=== PATIENT | female | born 1965 | race Caucasian/White ===

== ENCOUNTER 2017-10-30 18:09 | Inpatient (IN) | payer OTHER ==
[~2017-10-30] VITALS: Ht 172.7 cm; Wt 84.1 kg
--- NOTE | ~2017-10-30 | HC ---
[facility] [place] [address] CONSULTATION Name: KARY GUERRIER Room #: 427-P ADM IN .R.#: [id number] Admission: 10/30/17 Attend Phys: Greg Rossi MD Discharge: Date of : 63 Report #: [id number] THIS REPORT FOR: //name// CC: [facility] physician/PCP Greg Rossi DATE OF SERVICE: 10/31/2017 CHIEF COMPLAINT: Left ischial pressure ulceration. HISTORY OF PRESENT ILLNESS: This is a 51-year-old female patient with a history of paraplegia. She apparently had some sort of a cervical cord lesion that has caused her paraplegia. All of the details are not entirely clear. The patient has significant contractures and spasm of her lower extremities. She has developed a pressure ulceration of the right ischium and she states is painful and I have been asked to see her with regard to wound care. PAST MEDICAL HISTORY: History of lumbar spine surgery and cervical spine injury and scoliosis. SOCIAL HISTORY: Negative for alcohol or tobacco use. FAMILY HISTORY: Noncontributory. REVIEW OF SYSTEMS: CONSTITUTIONAL: The patient does complain of some fever and chills. NEUROLOGICAL: The patient does have paraplegia and spasticity of lower extremities. ENT: The patient denies earache, nasal drainage or sore throat. CARDIOVASCULAR: The patient denies chest pain, palpitations or diaphoresis. PULMONARY: The patient denies cough or shortness of breath. GASTROINTESTINAL: No nausea, vomiting, diarrhea or abdominal pain. GENITOURINARY: Present for has a Hays catheter in place. ORTHOPEDIC: The patient is aware of the ulceration on the left ischial region. Other systems in a 14-point review of systems are negative. MEDICATIONS: As per MAR include ceftriaxone, vancomycin, hydrocodone and enoxaparin. ALLERGIES: None. PHYSICAL EXAMINATION: VITAL SIGNS: At this time include pulse 102, respirations 16, blood pressure 119/65 and temperature 99.3. GENERAL: This is a chronically ill-appearing female [place] [address] CONSULTATION Name: KARY GUERRIER Room #: [address] [place] [address] IN M.R.#: [id number] Admission: 10/30/17 Attend Phys: Greg Rossi MD Discharge: Date of : 63 Report #: [id number] minimal distress. HEENT: Examination of the head normocephalic. LUNGS: Clear. NECK: Supple. LUNGS: Clear. HEART: Regular. ABDOMEN: Soft. Bowel sounds present. EXTREMITIES: Examination of the lower extremities demonstrates contractures of the hips and knees. She has a large circular ulceration to the left ischial region. This is unstageable and is covered with fibrin. There is significant surrounding erythema and tenderness as well as the odor. NEUROLOGICAL: The patient is paraplegic with spasticity of the lower extremities. LABORATORY DATA: Includes sodium 139, potassium 3.1, chloride 106, CO2 23, BUN 12, creatinine 0.5 and glucose 96. White blood cell count 18.1 down from 23.0, hemoglobin of 10.3 and hematocrit 29.2. Prealbumin is very low at 4.8. CLINICAL IMPRESSION: 1. An unstageable pressure ulcer over the left ischial tuberosity with wound infection. 2. Paraplegia with lower extremity contractures and spasticity. 3. Severe protein-calorie malnutrition. 4. Urinary tract infection. RECOMMENDATIONS: At this point in time, we will recommend operative debridement and I have consulted Dr. Figueredo once the wound base is glove cleaner. We will consider options for local wound care, although this may be amenable to a wound VAC. She will need low air loss mattress, q. 2 hour turning and positioning. She may benefit from seeing Physical Therapy and possibly Psychiatry with regard to the significant contractures of her lower extremities. She will need aggressive nutritional support to support normal wound healing. All questions have been answered. I appreciate being asked to see her in consultation. <ELECTRONICALLY SIGNED> By: Samson Mejia MD 11/02/17 1712 2316 [id number] Samson Mejia MD /nt
--- NOTE | ~2017-10-30 | HC ---
[facility] [place] [address] CONSULTATION Name: KARY GUERRIER Room #: 427-P ADM IN M.R.#: [id number] Admission: 10/30/17 Attend Phys: Greg Rossi MD Discharge: Date of : 63 Report #: [id number] THIS REPORT FOR: //name// CC: [facility] physician/PCP Greg Rossi DATE OF SERVICE: 11/06/2017 HISTORY OF PRESENT ILLNESS: The patient is a 51-year-old white female with a prior cervical spinal cord injury from 2012, premorbidly wheelchair bound, admitted with a new buttock wound. She has had problems with contracture formation, left distal upper extremity as well as left lower extremity, and we are consulted regarding recommendations. Please see Aida Webb's full consult note. PAST MEDICAL HISTORY: Please see the Aida Webb's note. SOCIAL HISTORY: Please see the Aida Webb's note. ALLERGIES: Please see the Aida Webb's note. MEDICATIONS: Please see the Aida Webb's note. REVIEW OF SYSTEMS: The patient is wheelchair bound, has both the power and a manual wheelchair. She has been able to transfer independently using a ____ slide board. She does drive using hand controls and has a single pin for the left upper extremity that she uses with driving and uses her thumb and index finger to manipulate on the left hand. She has a boyfriend that will sometimes do range of motion as well as a son and grandson that are involved. She has been on baclofen in the past, although is not currently on any antispasticity medication. She does give a history of some triple flexion spasticity of the left lower extremity. PHYSICAL EXAMINATION: GENERAL: A 51-year-old white female, in no obvious distress. Alert, oriented, appropriate. EXTREMITIES: She has functional range of motion of that right upper extremity without obvious focal weakness. Right lower extremity: There is paresis, but she can move that right leg, I would say at least 3+ to 4-/5. With the left upper extremity, she is unable to abduct that left shoulder and has only trace extension as far as triceps. She does have reasonable wrist extension at least a grade 3+. She has a chronic contracture of the left third, fourth and fifth digits, which are in a fisted type flexed position. She has a small hand roll that is in place. There are some hygiene issues with this hand. I was able to gently extend those fingers approximately an inch off her palm, but this had to be done gradually. She does have decent movement and coordination at least a [facility] [address] [place] [address] CONSULTATION Name: KARY GUERRIER Room #: 427-P ADM IN M.R.#: [id number] Admission: 10/30/17 Attend Phys: Greg Rossi MD Discharge: Date of : 63 Report #: [id number] grade 3+ to 4- of her left thumb and index finger and does have pinch between these two. In her left lower extremity, she has flexion of that left hip and knee with the heel almost up against her buttock. I was able to gently with sustained stretch extend that left lower extremity to essentially full extension of the knee and the hip. She still does have some plantar flexion contracture at least 20 degrees. There was no clonus, but she does have increased tone and there is some triple flexion movement of that left lower extremity back in to prior positioning. ASSESSMENT: A 51-year-old white female with the following problem list: 1. 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 2. Flexion contracture of the left hand, especially third, fourth and fifth digits. 3. Flexion positioning of the left lower extremity in hip and knee flexion with an evidence of ankle plantar flexion contracture. 4. Some triple flexion increased tone of that left lower extremity. 5. Left ischial tuberosity stage 3 pressure wound, status post debridement. 6. Scoliosis. 7. History of sepsis with urinary tract infection. PLAN: 1. We will ask OT to reevaluate again regarding the left hand contracture. I would like to have the therapist assess regarding hand roll and orthotic options with her. Stressed the importance of continued static stretch by her significant other and family members to try to maintain range of motion. I would like to have home health care OT assess her as well post-discharge. 2. Physical therapy orders regarding sustained stretch of that left lower extremity as well as the left heel cord. Again, discussed importance of continued range of motion in the home setting by family members. I would also like home health care, physical therapy to see this patient. 3. I would recommend outpatient followup with Physical Medicine and Rehabilitation for ongoing management. She may warrant restarting of baclofen as she does have a triple flexion spasticity response of that left lower extremity. I do not see that Botox would be indicated at this time. Positioning and equipment issues were further discussed as well. I did give her the card of Dr. Jeramie Hedrick for consideration for outpatient followup. Thank you for asking us to assist in this patient's care. <ELECTRONICALLY SIGNED> By: John Sadler MD 11/07/17 4644 1514 1855 John Sadler MD /nt
--- NOTE | ~2017-10-30 | PATH ---
[facility] [address] [place] [address] PATHOLOGY RPT PROCEDURE Name: LEIDA NAPIER Room #: 427-P ADM IN M.R.#: [id number] Admission: 10/30/17 Date of : 63 Discharge: Report #: [id number] Path Case #: [id number] [facility] Accession Number: [id number] . 01 Material submitted: . LEFT ISCHIAL TUBEROSITY ULCER . 01 Clinical history: . Sacral decubitus ulcer . 02 Diagnosis: Left ischial tuberosity ulcer, excision: - Marked acute inflammation along with fibrinoid degeneration extending to underlying subcutaneous tissue, history of decubitus ulcer. (IUV/db; 11/05/17) LBQ/11/05/2017 . 02 Electronically signed: . Tiny Wolfe MD, Pathologist NPI- [id number] . 01 Gross description: . The specimen is received in formalin, labeled "Leida Napier and left ischial tuberosity ulcer", are two portions of cabrera-white skin with attached underlying yellow, anne-white indurated soft tissue, the largest an ellipse of skin measuring 4.0 x 1.5 cm with underlying attached soft tissue measuring 5.5 x 5.5 x 4.0 cm. The skin surface has a central defect that is colored by a anne-white purulent exudate. The second portion measures 3.2 x 1.5 cm with underlying soft tissue 2.0 x 2.0 x 1.5 cm. Sectioning of the larger fragment reveals a necrotic skin with extension to the underlying soft tissue that is indurated with the deep margin edematous. Represent sections in A1-A2. (A1 = skin and A2 = deep margin) . ([facility]; 11/03/2017) / . Pathologist provided ICD-10: L89.159 . 02 CPT . 622057 Performed at: [address] [id number] MD Hesham Katz MD Phone: [phone] Performed at: 02 [place] [address] PATHOLOGY RPT PROCEDURE Name: LEIDA NAPIER Room #: 427-P ADM IN M.R.#: [id number] Admission: 10/30/17 Date of : 63 Discharge: Report #: [id number] Path Case #: [id number] [facility] [address], [place], [place] [id number] MD Tiny Wolfe MD Phone: [phone]
--- NOTE | ~2017-10-30 | EKG ---
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
--- NOTE | ~2017-10-30 | HC ---
[facility] [place] [address] CONSULTATION Name: KARY GUERRIER Room #: 427-P ADM IN M.R.#: [id number] Admission: 10/30/17 Attend Phys: Greg Rossi MD Discharge: Date of : 63 Report #: [id number] THIS REPORT FOR: //name// CC: [facility] physician/PCP Greg Rossi DATE OF SERVICE: 10/31/2017 INFECTION DISEASE CONSULTATION REASON FOR CONSULTATION: Evaluation regarding fever in the setting of paraplegia. HISTORY OF PRESENT ILLNESS: The patient is a 51-year-old with paraplegia since 2012. She states that she had a cervical cord lesion that left her paraplegic. She has also had scoliosis and spinal surgery on her lumbar spine. She has been in a wheelchair for last several years. She is cared for by her grandson and her son at home. Initially was treated in [place], [place]. Over the last month, she has had intermittent low-grade fever. Had some malaise. Increased muscle spasms. She has urinary incontinence. Unable to self-cath due to her contractures. Over the last 4-5 days, she has had high fever up to 103 degrees. She had increased pain and ulcer involving the left buttock and ischial region. She does have some sensation in her lower abdomen and pelvic region. With this, she has had chills. Mild anorexia. She has been constipated. She has difficulty localizing the pain due to her paraplegia. She now has an indwelling Hays catheter. REVIEW OF SYSTEMS: No other neurologic issues. No depression or anxiety. No other skin issues. Has had some headache and sinus congestion. No oral lesions or mucositis. Denies any diabetes or thyroid symptoms. No cough or sputum production. No chest pain, palpitations, or syncopal episodes. Denies any nausea or vomiting. No allergies or lymphadenopathy. ALLERGIES: None known. MEDICATIONS: As noted on her MAR including enoxaparin, ceftriaxone, vancomycin, hydrocodone, MiraLax, ondansetron. PAST MEDICAL HISTORY: As noted above with lumbar spine surgery, cervical spine injury, scoliosis. SOCIAL HISTORY: Nonsmoker, no significant alcohol intake. FAMILY HISTORY: Noncontributory with no inheritable diseases. [facility] [address] [place] [address] CONSULTATION Name: KARY GUERRIER Room #: 427-P [facility] IN M.R.#: [id number] Admission: 10/30/17 Attend Phys: Greg Rossi MD Discharge: Date of : 63 Report #: [id number] PHYSICAL EXAMINATION: VITAL SIGNS: Afebrile and hemodynamically stable. Maximum temperature is 103.3 degrees earlier yesterday evening. HEENT: Unremarkable. Mouth unremarkable. NECK: Supple. No thyromegaly or mass. Carotid upstrokes normal. No adenopathy. PSYCHIATRIC: Mental status normal, mood normal. LUNGS: Clear with good excursions and no adventitial sounds. HEART: Regular without murmur, gallop or rub. BREASTS: Unremarkable. ABDOMEN: Firm. She did have contractures when palpating. Could not appreciate any mass. GENITOURINARY: External genitalia unremarkable with indwelling Hays catheter. SKIN: Left buttock skin with a fairly large soft tissue defect with surrounding erythema and fluctuance. There was induration and some fluctuance over the tissue breakdown. The patient did have some spasms when palpating this region. No other skin ulcers noted or evidence of cellulitis outside of this area. EXTREMITIES: Had bilateral lower extremity contractures. Upper extremity strength was normal. NEUROLOGIC: Cranial nerves intact. LABORATORY STUDIES: Blood cultures negative thus far. Hemoglobin 10, WBC 18, platelet count 329,000. Sodium 139, potassium 3.1, bicarbonate 23, creatinine 0.5. Urinalysis: Moderate wbc's, many bacteria. Urine culture is pending. CT scan of the pelvis shows edema of the lower gluteal region. No evidence of osteomyelitis. I reviewed the CT scan and agree with interpretation. There is also L4 laminectomy changes. IMPRESSION: 1. A 51-year-old with fever, I suspect related to left gluteus soft tissue infection from pressure wound. Also, has urinary tract infection complicating a neurogenic type bladder. 2. The patient has extensive contractures, which limits much of her care. 3. Underlying paraplegia. 4. Scoliosis. RECOMMENDATION: We will continue IV antibiotic therapy with vancomycin and Zosyn. Surgical debridement of her ischial wound. Offloading the left ischium. Consider baclofen for her spasms. Follow up laboratory studies including CBC. Await cultures of her tissue wound and urinary tract. Also, obtain chest x-ray. <ELECTRONICALLY SIGNED> By: Iftikhar Carrion MD 11/03/17 1546 1324 1904 Iftikhar Carrion MD /nt
[2017-10-30 18:10] VITALS: BP 109/56
[2017-10-30 19:13] LABS: HEMATOCRIT 32.9 % (37.0-47.0); HEMOGLOBIN 11.3 gm/dL (12.0-15.0); MCH 30.3 pg (26.0-34.0); MCHC 34.4 g/dL (28.0-37.0); PLATELET COUNT 364 thou/uL (150-400); RBC 3.75 mil/uL (4.20-5.00); RDW 12.8 % (10.5-14.5)
[2017-10-30 19:16] LABS: CREATININE 0.8 mg/dL (0.6-1.0); POTASSIUM 3.3 mmol/L (3.5-5.1)
[2017-10-30 19:24] LABS: URINE BILIRUBIN NEGATIVE (Negative); URINE BLOOD 1+ (Negative); URINE CLARITY SL CLOUDY; URINE COLOR YELLOW; URINE GLUCOSE-RANDOM* NEGATIVE (Negative); URINE KETONES 1+ (Negative); URINE PROTEIN (DIPSTICK) 1+ (Negative)
[2017-10-30 19:26] LABS: URINE LEUKOCYTES-REFLEX 2+ (Negative); URINE NITRITE-REFLEX POSITIVE (Negative)
[2017-10-30 19:36] LABS: BACTERIA-REFLEX >30 Many /HPF (None Seen); CRYSTALS None Seen /LPF (None Seen); HYALINE CASTS 0-3 Few /LPF (None Seen); SQUAMOUS 0-3 Few /LPF (0-3); URINE RBC 3-10 Few /HPF (0-2); WBC CLUMPS Many (None Seen)
[2017-10-30 19:39] LABS: ABSOLUTE NEUTROPHILS 20.9 thou/uL (1.4-8.2)
[2017-10-30 20:36] VITALS: BP 102/57
[2017-10-30 21:31] VITALS: BP 96/44
[2017-10-31 00:03] VITALS: BP 75/56
[2017-10-31 04:31] VITALS: BP 87/50
[2017-10-31 05:54] LABS: CALCIUM 8.1 mg/dL (8.5-10.1); CREATININE 0.5 mg/dL (0.6-1.0); POTASSIUM 3.1 mmol/L (3.5-5.1)
[2017-10-31 05:55] LABS: HEMATOCRIT 29.2 % (37.0-47.0); HEMOGLOBIN 10.3 gm/dL (12.0-15.0); MCH 31.3 pg (26.0-34.0); MCHC 35.3 g/dL (28.0-37.0); MCV 88.5 fL (80.0-100.0); RBC 3.29 mil/uL (4.20-5.00); RDW 12.6 % (10.5-14.5); WBC 18.1 thou/uL (4.0-11.0)
[2017-10-31 07:11] VITALS: BP 94/76
[2017-10-31 17:00] VITALS: BP 85/52
[2017-10-31 19:40] VITALS: BP 119/65
[2017-11-01] VITALS (10 sets, daily range): BP systolic 111–141; BP diastolic 59–84
[2017-11-01 11:25] LABS: BASOPHILS 0.5 % (0.0-2.0); EOSINOPHILS 0.7 % (0.0-3.0); HEMATOCRIT 31.7 % (37.0-47.0); HEMOGLOBIN 10.9 gm/dL (12.0-15.0); LYMPHOCYTES 8.8 % (24.0-44.0); MCH 30.6 pg (26.0-34.0); MCHC 34.2 g/dL (28.0-37.0); MCV 89.4 fL (80.0-100.0); PLATELET COUNT 349 thou/uL (150-400); RBC 3.55 mil/uL (4.20-5.00); WBC 10.4 thou/uL (4.0-11.0)
[2017-11-02 05:00] VITALS: BP 136/67
[2017-11-02 05:20] LABS: CALCIUM 8.3 mg/dL (8.5-10.1); CREATININE 0.5 mg/dL (0.6-1.0); POTASSIUM 3.9 mmol/L (3.5-5.1)
[2017-11-02 05:30] LABS: HEMOGLOBIN 9.2 gm/dL (12.0-15.0); MCH 30.5 pg (26.0-34.0); MCHC 34.2 g/dL (28.0-37.0); RBC 3.03 mil/uL (4.20-5.00); WBC 11.9 thou/uL (4.0-11.0)
[2017-11-02 15:20] VITALS: BP 135/75
[2017-11-02 15:25] VITALS: BP 112/68
[2017-11-02 16:35] VITALS: BP 112/68
[2017-11-02 20:00] VITALS: BP 122/69
[2017-11-03 05:00] VITALS: BP 133/85
[2017-11-03 07:30] VITALS: BP 125/67
[2017-11-03 09:17] VITALS: BP 125/67
[2017-11-03 16:00] VITALS: BP 121/71
[2017-11-03 19:12] VITALS: BP 143/88
[2017-11-04 03:26] VITALS: BP 133/74
[2017-11-04 07:15] VITALS: BP 126/65
[2017-11-04 07:24] LABS: HEMATOCRIT 29.1 % (37.0-47.0); HEMOGLOBIN 9.9 gm/dL (12.0-15.0); MCH 30.3 pg (26.0-34.0); MCHC 33.9 g/dL (28.0-37.0); MCV 89.4 fL (80.0-100.0); RBC 3.26 mil/uL (4.20-5.00); RDW 13.1 % (10.5-14.5)
[2017-11-04 07:51] LABS: CALCIUM 8.3 mg/dL (8.5-10.1); CREATININE 0.5 mg/dL (0.6-1.0)
[2017-11-04 15:00] VITALS: BP 154/89
[2017-11-04 20:00] VITALS: BP 148/79
[2017-11-05 04:35] VITALS: BP 142/89
[2017-11-05 05:48] LABS: HEMATOCRIT 28.4 % (37.0-47.0); HEMOGLOBIN 9.8 gm/dL (12.0-15.0); MCH 30.6 pg (26.0-34.0); MCHC 34.6 g/dL (28.0-37.0); MCV 88.4 fL (80.0-100.0); RBC 3.21 mil/uL (4.20-5.00); RDW 12.9 % (10.5-14.5); WBC 9.3 thou/uL (4.0-11.0)
[2017-11-05 05:56] LABS: CALCIUM 8.1 mg/dL (8.5-10.1); CREATININE 0.5 mg/dL (0.6-1.0)
[2017-11-05 07:30] VITALS: BP 134/75
[2017-11-05 15:50] VITALS: BP 127/70
[2017-11-05 21:22] VITALS: BP 149/86
[2017-11-06 03:39] VITALS: BP 151/88
[2017-11-06 17:16] VITALS: BP 148/79
[2017-11-06 20:10] VITALS: BP 143/76
[2017-11-07 04:48] VITALS: BP 147/91
[2017-11-07 09:00] VITALS: BP 134/79
[2017-11-07] MEDS ORDERED: AUGMENTIN 875-1 EACH PO (15:56)
[2017-11-07] MEDS ORDERED: HYDROCODON-ACE1 EAC7 PO (15:57)
[2017-11-07 16:00] VITALS: BP 136/79
[2017-11-07 16:17] VITALS: BP 134/79
[2017-11-07 20:53] VITALS: BP 134/79
== END 2017-11-07 20:50 | disposition home health service (06) | DRG 853 ==
LOC: ER 18:09 → EROBS 20:14 → 4E 20:14
PROVIDERS: Emergency Medicine; Hospitalist; Nurse Practitioner Family; Specialist
PROC: 0KBP0ZZ Excision of Left Hip Muscle, Open Approach (ICD-10-PCS; principal; 2017-11-01)
DX: A41.9 Sepsis, unspecified organism (principal); L89.153 Pressure ulcer of sacral region, stage 3; L89.323 Pressure ulcer of left buttock, stage 3; E43 Unspecified severe protein-calorie malnutrition; N39.0 Urinary tract infection, site not specified; G82.20 Paraplegia, unspecified; R25.2 Cramp and spasm; L89.140 Pressure ulcer of left lower back, unstageable; M20.092 Other deformity of left finger(s); M24.552 Contracture, left hip; K59.00 Constipation, unspecified; M24.562 Contracture, left knee; M41.9 Scoliosis, unspecified; S14.109A Unspecified injury at unspecified level of cervical spinal cord, initial encounter; X58.XXXA Exposure to other specified factors, initial encounter; F17.210 Nicotine dependence, cigarettes, uncomplicated; Z68.28 Body mass index [BMI] 28.0-28.9, adult; Y93.89 Activity, other specified; Y92.89 Other specified places as the place of occurrence of the external cause; Y99.8 Other external cause status; Z71.6 Tobacco abuse counseling; Z99.3 Dependence on wheelchair; Z79.899 Other long term (current) drug therapy
CPT/HCPCS: 10183; 10783; 50101; 50386; 62110; 62900; 70005

== ENCOUNTER → 2018-02-03 | Outpatient (CLI) | payer OTHER ==
[~2018-02-03] MED LIST: AUGMENTIN 875-1 EACH PO; B12INJ SUBQ; CUBICIN500 MG IVPB; DAKIN'S473 M2 TOP; ENOXAPARIN30 MG/0.1 SUBQ; ENOXAPARIN40 MG/0.1 SUBQ; FORTAZ2 G1 IV; HYDROCODON-ACE1 EAC7 PO; LIDOCAINE PAIN1 EACH TRANSDERM; LIORESAL 10 MG10 MG PO; MIDODRINE HCL 55 M1 PO; NORCO 7.5-3251 EACH PO; TRIAMCINOLONE A80 G2 TOP; VALIUM5 MG PO; VANCOMYCIN1.25 GM/22 IV; VITAMINC500 PO; ZINC SULFATE 2220 M1 PO; ZOSYN 3.373.375 GM/1 IV
== END ==
LOC: HYPER 06:49
DX: L89.323 Pressure ulcer of left buttock, stage 3 (principal); F17.200 Nicotine dependence, unspecified, uncomplicated; F41.9 Anxiety disorder, unspecified; F32.9 Major depressive disorder, single episode, unspecified

== ENCOUNTER 2018-03-17 13:44 | Inpatient (IN) | payer OTHER ==
[~2018-03-17] VITALS: Ht 172.7 cm; Wt 73.1 kg
--- NOTE | ~2018-03-17 | D ---
[facility] [place] [address] DISCHARGE SUMMARY Name: KARY GUERRIER Room #: 418-P [facility] IN M.R.#: [id number] Admission: 03/17/18 Attend Phys: Tatianna Azevedo Discharge: 03/23/18 Date of : 63 Report #: [id number] THIS REPORT FOR: //name// CC: Harmeet Carrion [facility] physician/PCP FINAL DIAGNOSES: 1. Left ischial osteomyelitis. 2. Left ischial stage 4 wound. 3. Anemia of chronic disease. 4. Paraplegia. HOSPITAL COURSE: The patient was admitted with fever. CT showed osteomyelitis in the left ischial tuberosity site of a chronic old wound. Dr. Washington performed an incision and debridement. Please see that separately dictated report. She was treated with IV antibiotics and supportive measures. PHYSICAL EXAMINATION: On the day of discharge: GENERAL: She was awake and alert. VITAL SIGNS: Stable. LUNGS: Clear. HEART: Regular. ABDOMEN: Soft, normoactive bowel sounds. EXTREMITIES: No edema. DISPOSITION: To be transferred to [facility]dc facility for continued wound care with a wound VAC, IV antibiotics, weekly lab work. Follow up with physicians in-house. Continue current medications. <ELECTRONICALLY SIGNED> By: John Blackwell MD 03/24/18 1259 1325 1715 John Blackwell MD /nt
--- NOTE | ~2018-03-17 | H ---
[facility] [place] [address] HISTORY AND PHYSICAL Name: KARY GUERRIER Room #: 418-P ADM IN M.R.#: [id number] Admission: 03/17/18 Attend Phys: Tatianna Azevedo Discharge: Date of : 63 Report #: [id number] THIS REPORT FOR: //name// CC: Harmeet Carrion [facility] physician/PCP DATE OF SERVICE: 03/17/2018 CHIEF COMPLAINT: Fever. HISTORY OF PRESENT ILLNESS: The patient is a 52-year-old female who was admitted from the office for evaluation of fever and weakness. She has a long-standing history of sacral wounds and has been undergoing outpatient treatment following a recent LTAC stay in December of this year. She has a history of incomplete quadriplegia and a chronic left hip and buttock wound. She previously completed a course of IV antibiotics and was receiving wound care. However, she has had low-grade fevers for several days and an elevated white count of around 12,000 through lab from the office. PAST MEDICAL HISTORY: Scoliosis, lumbar spinal surgery, incomplete quadriplegia from a prior neck injury, chronic left hip and buttock wounds and neurogenic bladder with a catheter. PAST SURGICAL HISTORY: As above. FAMILY HISTORY: Noncontributory. SOCIAL HISTORY: Denies chronic alcohol or tobacco use. ALLERGIES: None. MEDICATIONS: Vitamin C, baclofen, B12 and zinc. REVIEW OF SYSTEMS: Denies headache, chest pain, shortness of breath, abdominal pain, nausea, vomiting, diarrhea, constipation, dysuria or syncope. PHYSICAL EXAMINATION: VITAL SIGNS: Temperature 36.9, pulse 93, respirations 18, blood pressure 108/67 and O2 sat 98% on room air. GENERAL: She is awake and alert, in no distress. HEAD AND NECK: Unremarkable. LUNGS: Clear. HEART: Regular. ABDOMEN: Soft. Normoactive bowel sounds. EXTREMITIES: No edema. Wounds currently not assessed as she has just been addressed in bed. [facility] [address] [place] [address] HISTORY AND PHYSICAL Name: KARY GUERRIER Room #: 418-[facility] IN ..#: [id number] Admission: 03/17/18 Attend Phys: Tatianna Azevedo Discharge: Date of : 63 Report #: [id number] ASSESSMENT: 1. Chronic left sacral and gluteal wounds. 2. Febrile illness. 3. Leukocytosis. 4. Anemia of chronic disease. 5. Severe protein-calorie malnutrition, albumin 2.2. 6. Incomplete quadriplegia. 7. Neurogenic bladder. PLAN: Full cultures have been obtained and I have started Zosyn and vancomycin overnight. I will ask for a CT of the pelvis and Dr. Iftikhar Carrion has been consulted. <ELECTRONICALLY SIGNED> By: John Blackwell MD 03/19/18 1217 1238 1249 John Blackwell MD /nt
--- NOTE | ~2018-03-17 | PATH ---
[facility] [address] [place] [address] PATHOLOGY RPT PROCEDURE Name: LEIDA NAPIER Room #: 418-P DIS IN M.R.#: [id number] Admission: 03/17/18 Date of : 63 Discharge: 03/23/18 Report #: [id number] Path Case #: [id number] [facility] Accession Number: [id number] . 01 Material submitted: . PART A: LEFT ISCHIAL TISSUE PART B: LEFT ISCHIAL BONE . 01 Clinical history: . Left ischial decubitus ulcer. . 02 Diagnosis: A. Skin and subcutaneous tissue, left ischial tissue, debridement: - Ulceration and marked acute inflammation along with fibrinoid degeneration, consistent with ulcer and ulcer bed. - Adjacent squamous epithelium showing reactive changes. . B. Bone, left ischial bone, debridement: - Fragments of bone are present in close association with acute and chronic inflammation showing bone remodeling as well as osteonecrosis. -Fragments of fibrinoid degenerative as well as granulation tissue. . 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 02 Electronically signed: . Tiny Wolfe MD, Pathologist NPI- [id number] . 01 Gross description: . A. Received in formalin labeled "Leida Napier, left ischial tissue" is an irregular excision of cabrera-white skin and underlying soft tissue measuring 11.2 x 5.0 x 2.7 cm. There is a cabrera-white ulcerated lesion which extends from the skin surface and measures 4.5 x 2.5 x 1.7 cm. Upon sectioning the specimen, no tumors or nodules are grossly identified. A jewelry sales representative section is submitted in cassette A1. . B. Received in formalin labeled "Leida Napier, left ischial bone" is a 5.0 x 3.6 x 0.5 cm aggregate of cabrera-white irregular bone fragments. Frame Wirer sections are submitted in cassette B1 following decalcification. ([facility] 03/20/2018) SYC/SYC . 02 Pathologist provided ICD-10: M87.852, L92.8, L89.229 . 02 [place] [address] PATHOLOGY RPT PROCEDURE Name: LEIDA NAPIER Room #: 418-P DIS IN M.R.#: [id number] Admission: 03/17/18 Date of : 63 Discharge: 03/23/18 Report #: [id number] Path Case #: [id number] CPT . 386346, 870193, [id number] Specimen Comment: A courtesy copy of this report has been sent to Specimen Comment: [phone], . Specimen Comment: Report sent to / DR SHAH Specimen Comment: A duplicate report has been generated due to demographic updates. Performed at: [address] [facility], [place] [id number] MD Hesham Katz MD Phone: [phone] Performed at: [address] [id number] MD Tiny Wolfe MD Phone: [phone]
--- NOTE | ~2018-03-17 | HC ---
[facility] [place] [address] CONSULTATION Name: KARY GUERRIER Room #: 418-P ADM IN M.R.#: [id number] Admission: 03/17/18 Attend Phys: Tatianna Azevedo Discharge: Date of : 63 Report #: [id number] THIS REPORT FOR: //name// CC: Harmeet Carrion [facility] physician/PCP DATE OF SERVICE: 03/18/2018 CHIEF COMPLAINT: Bilateral ischial pressure ulcerations. HISTORY OF PRESENT ILLNESS: This is a 52-year-old female patient with whom I am familiar from multiple prior admissions to the hospital. She has a history of paraplegia secondary to a spinal cord injury. She has spasticity and contractures of the lower extremities. We have had issues with ongoing pressure ulceration to her left ischial region. She has undergone previous surgical debridement; however, this area continues to have drainage and undermining. She has also developed pressure ulceration to her right ischium. She is admitted for intravenous antibiotic therapy and consideration of additional wound care modalities including surgical debridement. PAST MEDICAL HISTORY: Positive for history of scoliosis, lumbar spinal surgery, incomplete quadriplegia from previous neck injury, and previous stage 4 pressure ulceration to the left ischium. PAST SURGICAL HISTORY: Positive for previous spinal procedures. FAMILY HISTORY: Noncontributory. SOCIAL HISTORY: Negative for alcohol or tobacco use. ALLERGIES: None. MEDICATIONS: Include baclofen, vitamin C, vitamin B12, Valium, midodrine, zinc, Lovenox, Zosyn, and vancomycin. REVIEW OF SYSTEMS: CONSTITUTIONAL: The patient denies fever, chills or weight loss. EYES: The patient denies visual changes, redness or drainage. ENT: The patient denies earache, nasal drainage or sore throat. CARDIOVASCULAR: The patient denies chest pain, palpitations or diaphoresis. PULMONARY: The patient denies cough or shortness of breath. ORTHOPEDIC: The patient does have significant contractures and spasticity of the lower extremities. Other systems in a 14-point review of systems are negative. [address] [address] CONSULTATION Name: KARY GUERRIER Room #: 418-[facility] IN M.R.#: [id number] Admission: 03/17/18 Attend Phys: Tatianna Azevedo Discharge: Date of : 63 Report #: [id number] PHYSICAL EXAMINATION: VITAL SIGNS: At this time include temperature 98.4, pulse 80, respiratory rate of 18, blood pressure 117/75. GENERAL: This is a chronically ill-appearing female patient who appears to be in no distress. HEENT: Head normocephalic. Nose and throat are clear. NECK: Supple. LUNGS: Clear. ABDOMEN: Soft. Bowel sounds present. EXTREMITIES: Examination of the pelvic region demonstrates a stage 4 pressure ulceration of the left ischium. There is exposed bone with significant undermining. There is now also what appears to be a stage 3 pressure ulcer of the right ischial region. She has significant spasticity and flexion contractures at the hips and knees bilaterally. NEUROLOGIC: The patient has incomplete quadriplegia. She is awake, alert, oriented, appropriate, and pleasant. LABORATORY DATA: Includes sodium 136, potassium 101, CO2 27, BUN 15, creatinine 0.6, albumin is low at 2.2. CRP is elevated at 164.5. White blood cell count of 6.2 with hemoglobin of 9.2. Prealbumin was last checked in October, was very low at 4.8. Sed rate is markedly elevated at 138. CLINICAL IMPRESSION: 1. Stage 4 pressure ulceration of the left ischium, not improving. 2. Pelvic osteomyelitis. 3. Incomplete quadriplegia. 4. New pressure ulceration, likely stage 3, to the right ischium. 5. Spasticity and flexion contractures, bilateral lower extremities. RECOMMENDATIONS: At this point in time, the patient will need surgical debridement including bony debridement of the left ischial region. We will try with local care to improve the right atrium. She will need aggressive nutritional support to support wound healing. Hopefully, after surgical treatment, we will consider wound VAC. We will need to aggressively offload. It is unclear to me what options for dealing with her spasticity. May wish to discuss this with primary physician and/or rehab physicians during the course of her stay. We will consult general surgery for the debridement. The patient is agreeable to current plan of care. I appreciate being asked to see her in consultation. <ELECTRONICALLY SIGNED> By: Samson Mejia MD 03/23/18 [id number] [id number] Samson Mejia MD /nt
--- NOTE | ~2018-03-17 | O ---
[address] [address] OPERATIVE REPORT Name: KARY GUERRIER Room #: 418-P ADM IN M.R.#: [id number] Admission: 03/17/18 Attend Phys: Tatianna Azevedo Discharge: Date of : 63 Report #: [id number] THIS REPORT FOR: //name// CC: Harmeet Mejia MD DATE OF SERVICE: 03/20/2018 SURGEON: Cale Washington MD RADIATION ONCOLOGY MANAGER: None. PREOPERATIVE DIAGNOSES: 1. Suspected stage 4 left ischial decubitus ulcer with osteomyelitis. 2. Paraplegia. 3. Scoliosis. 4. Asthma. 5. Acute tubular necrosis. POSTOPERATIVE DIAGNOSES: 1. Stage 4 left ischial decubitus ulcer with osteomyelitis. 2. Paraplegia. 3. Scoliosis. 4. Asthma. 5. Acute tubular necrosis. PROCEDURE: Excisional and ultrasonic debridement of stage 4 left ischial decubitus ulcer including skin, subcutaneous tissue, muscle and bone. -Starting measurement 5 cm wide x 2 cm long, ending measurement 15 cm wide x 11 cm long. *Total area 165 cm2. ANESTHESIA: General endotracheal anesthesia and local anesthetic. ESTIMATED BLOOD LOSS: 25 mL. SPECIMEN: Left ischial soft tissue, left ischial bone. COMPLICATIONS: None appreciated. INDICATIONS FOR PROCEDURE: This is a 52-year-old paraplegic female patient known to our service with left ischial osteomyelitis. She has been treated with [address] [address] OPERATIVE REPORT Name: KARY GUERRIER Room #: 418-P ADM IN M.R.#: [id number] Admission: 03/17/18 Attend Phys: Tatianna Azevedo Discharge: Date of : 63 Report #: [id number] a prolonged course of IV antibiotic therapy including ciprofloxacin and Flagyl. She has undergone surgical debridement with growth of MRSA and Pseudomonas aeruginosa. She reports continued drainage from the wound and was found to have an elevated white blood cell count as well as intermittent fevers of up to 101 degrees Fahrenheit. She underwent a pelvic CT showing posterior left ischial osteomyelitis with adjacent fat stranding, but no focal fluid collections or abscess was present. She presents today for excisional debridement. OPERATIVE FINDINGS: The initial wound opening was measured at 5 cm wide x 2 cm long. However, the patient had significant undermining and tunneling medially. Upon digital palpation, free floating bony tissue was present. This was removed to be sent for specimen. She required a large incision to open the wound and ultimately positively impact wound care by decreasing the tunneling/undermining. Osteomyelitis was palpable. The outer table of bone was jagged and sharp. Cultures were taken from the more superficial tissue as well as from the deep bony tissue. At the conclusion of the operation, the sponge, needle, and instrument counts were correct. There was good hemostasis. All grossly nonviable tissue had been excised. DESCRIPTION OF PROCEDURE IN DETAIL: After the risks, benefits, and expectations of the operation were discussed in detail with the patient, informed consent was obtained. The patient was identified in the preoperative holding area. She has been receiving scheduled IV antibiotics. She was taken to the Operating Room where she was placed in the supine position. SCDs were placed on the patient's bilateral lower extremities and pneumatic compression was initiated. The patient was then given IV sedation and general anesthesia. The patient was placed in the right lateral decubitus position with the left side up. Her left ischial area was prepped and draped in the standard sterile fashion. A time-out was performed to identify the correct patient and procedure. Digital palpation revealed the bony tissue, which was removed digitally. The wound was then measured and the planned incision was drawn out. Local anesthetic was infiltrated into the skin and subcutaneous tissue. A sharp #10 blade scalpel was then used to make an incision through the skin and subcutaneous tissue. Dissection was carried down to healthy bleeding tissue with electrocautery. The subcutaneous tissue and muscle were viable; however, a large cavity extended along the deeper tissue and the muscle was divided to unroof the cavity. Bleeding points were made hemostatic with electrocautery. Cultures were taken from the superficial tissue to be sent for aerobes, anaerobes and fungus. Upon visualizing the bone marrow, cultures were again taken from the marrow including aerobes, anaerobes and fungus. The wound was then mechanically debrided with a curette. Bleeding points were made hemostatic with electrocautery. A rasp was used to smooth out any jagged edges of outer table of the atrium. After ensuring hemostasis, the Misonix ultrasonic debridement device was used to mechanically debride the entire surface area of the wound including the bone marrow. Hemostasis was again achieved with [address] [address] OPERATIVE REPORT Name: KARY GUERRIER Room #: 418-P [facility] IN M.R.#: [id number] Admission: 03/17/18 Attend Phys: Tatianna Azevedo Discharge: Date of : 63 Report #: [id number] electrocautery. The deeper portions of the wound were infiltrated with local anesthetic. The wound was then packed with 1:1 Betadine to normal saline on Kerlix. An ABD pad and tape were then placed. The patient tolerated the procedure well. She was returned to the supine position, awakened and the laryngeal mask was removed without difficulty. The patient tolerated the procedure well. She was taken to the recovery room in stable condition. <ELECTRONICALLY SIGNED> By: Cale Washington MD, FACS 03/20/18 [phone] Cale Washington MD, FACS /nt
[2018-03-17 17:45] VITALS: BP 99/66
[2018-03-17 20:59] VITALS: BP 100/62
[2018-03-17 22:47] LABS: HEMATOCRIT 28.1 % (37.0-47.0); HEMOGLOBIN 9.3 gm/dL (12.0-15.0); MCH 27.8 pg (26.0-34.0); MCV 84.3 fL (80.0-100.0); RBC 3.33 mil/uL (4.20-5.00); RDW 15.3 % (10.5-14.5); WBC 12.8 thou/uL (4.0-11.0)
[2018-03-17 22:57] LABS: ALBUMIN 2.2 g/dL (3.4-5.0); CALCIUM 9.2 mg/dL (8.5-10.1); CREATININE 0.6 mg/dL (0.6-1.0); POTASSIUM 3.6 mmol/L (3.5-5.1); TOTAL BILIRUBIN 0.2 mg/dL (<0.1-1.0); TOTAL PROTEIN 7.5 g/dL (6.4-8.2)
[2018-03-18 08:00] VITALS: BP 108/67
[2018-03-18 14:29] LABS: URINE BILIRUBIN NEGATIVE (Negative); URINE BLOOD TRACE (Negative); URINE CLARITY CLEAR; URINE COLOR YELLOW; URINE GLUCOSE-RANDOM* NEGATIVE (Negative); URINE KETONES NEGATIVE (Negative); URINE PROTEIN (DIPSTICK) NEGATIVE (Negative); URINE UROBILINOGEN 0.2 E.U./dl (0.2-1.0)
[2018-03-18 14:32] LABS: URINE LEUKOCYTES-REFLEX 1+ (Negative); URINE NITRITE-REFLEX POSITIVE (Negative)
[2018-03-18 14:41] LABS: CASTS None Seen /LPF (None Seen); CRYSTALS None Seen /LPF (None Seen); SQUAMOUS 0-3 Few /LPF (0-3)
[2018-03-18 14:42] LABS: URINE RBC 0-2 Rare /HPF (0-2)
[2018-03-18 17:04] VITALS: BP 117/75
[2018-03-18 20:55] VITALS: BP 107/67
[2018-03-19 05:31] VITALS: BP 112/74
[2018-03-19 06:08] LABS: CALCIUM 8.6 mg/dL (8.5-10.1); CREATININE 0.5 mg/dL (0.6-1.0); POTASSIUM 3.8 mmol/L (3.5-5.1)
[2018-03-19 07:20] VITALS: BP 118/72
[2018-03-19 16:11] VITALS: BP 116/77
[2018-03-19 19:12] VITALS: BP 133/84
[2018-03-20 03:19] VITALS: BP 124/80
[2018-03-20 06:19] LABS: HEMATOCRIT 27.2 % (37.0-47.0); HEMOGLOBIN 9.2 gm/dL (12.0-15.0); MCH 28.4 pg (26.0-34.0); MCHC 33.7 g/dL (28.0-37.0); MCV 84.3 fL (80.0-100.0); RBC 3.23 mil/uL (4.20-5.00); RDW 15.1 % (10.5-14.5); WBC 6.2 thou/uL (4.0-11.0)
[2018-03-20 06:35] LABS: CALCIUM 8.7 mg/dL (8.5-10.1); CREATININE 0.5 mg/dL (0.6-1.0); POTASSIUM 3.6 mmol/L (3.5-5.1); TOTAL BILIRUBIN 0.1 mg/dL (<0.1-1.0); TOTAL PROTEIN 6.9 g/dL (6.4-8.2)
[2018-03-20 07:08] VITALS: BP 121/78
[2018-03-20 12:00] VITALS: BP 91/58
[2018-03-20 16:46] VITALS: BP 91/58
[2018-03-20 20:27] VITALS: BP 123/81
[2018-03-21 04:54] VITALS: BP 137/68
[2018-03-21 08:05] VITALS: BP 134/72
[2018-03-21 16:30] VITALS: BP 127/81
[2018-03-21 19:24] VITALS: BP 110/67
[2018-03-22 04:22] VITALS: BP 127/78
[2018-03-22 05:50] LABS: ABSOLUTE NEUTROPHILS 3.8 thou/uL (1.4-8.2); BASOPHILS 1.2 % (0.0-2.0); EOSINOPHILS 4.2 % (0.0-3.0); HEMATOCRIT 25.3 % (37.0-47.0); HEMOGLOBIN 8.6 gm/dL (12.0-15.0); LYMPHOCYTES 39.5 % (24.0-44.0); MCH 28.6 pg (26.0-34.0); MCHC 33.8 g/dL (28.0-37.0); MCV 84.7 fL (80.0-100.0); MONOCYTES 5.7 % (1.0-8.0); POLYS 49.4 % (36.0-66.0); RBC 2.99 mil/uL (4.20-5.00); RDW 15.3 % (10.5-14.5); WBC 7.7 thou/uL (4.0-11.0)
[2018-03-22 05:53] LABS: PLATELET COUNT 497 thou/uL (150-400)
[2018-03-22 06:05] LABS: CALCIUM 8.9 mg/dL (8.5-10.1); CREATININE 0.4 mg/dL (0.6-1.0); POTASSIUM 3.2 mmol/L (3.5-5.1)
[2018-03-22 07:41] VITALS: BP 123/78
[2018-03-22 16:20] VITALS: BP 127/78
[2018-03-22 19:34] VITALS: BP 143/78
[2018-03-23 05:45] VITALS: BP 130/90
[2018-03-23 08:11] VITALS: BP 134/83
[2018-03-23] MEDS ORDERED: FORTAZ IV (13:20)
[2018-03-23] MEDS ORDERED: MIRALAX17 GM PO (13:20)
[2018-03-23] MEDS ORDERED: PERCOCET PO (13:20)
[2018-03-23] MEDS ORDERED: VANCO1GM IV (13:20)
[2018-03-23 16:20] VITALS: BP 140/90
== END 2018-03-23 19:30 | DRG 853 ==
LOC: 4E 13:44
PROVIDERS: Internal Medicine Geriatric Medicine; Specialist
PROC: B54MZZA Ultrasonography of Right Upper Extremity Veins, Guidance (ICD-10-PCS; principal; 2018-03-20)
PROC: 0QB30ZZ Excision of Left Pelvic Bone, Open Approach (ICD-10-PCS; principal; 2018-03-20)
PROC: 05HY33Z Insertion of Infusion Device into Upper Vein, Percutaneous Approach (ICD-10-PCS; principal; 2018-03-20)
DX: A41.9 Sepsis, unspecified organism (principal); L89.324 Pressure ulcer of left buttock, stage 4; L89.313 Pressure ulcer of right buttock, stage 3; E43 Unspecified severe protein-calorie malnutrition; G82.50 Quadriplegia, unspecified; N17.0 Acute kidney failure with tubular necrosis; M86.8X8 Other osteomyelitis, other site; G82.20 Paraplegia, unspecified; M24.552 Contracture, left hip; M24.551 Contracture, right hip; M24.562 Contracture, left knee; M24.561 Contracture, right knee; B95.62 Methicillin resistant Staphylococcus aureus infection as the cause of diseases classified elsewhere; B96.5 Pseudomonas (aeruginosa) (mallei) (pseudomallei) as the cause of diseases classified elsewhere; D63.8 Anemia in other chronic diseases classified elsewhere; N31.9 Neuromuscular dysfunction of bladder, unspecified; M41.9 Scoliosis, unspecified; J45.909 Unspecified asthma, uncomplicated; Z68.24 Body mass index [BMI] 24.0-24.9, adult; Z79.899 Other long term (current) drug therapy
CPT/HCPCS: 10783; 27000; 50010; 50101; 50386; 50403; 57119; 57120; 62110; 62900; 70005

== ENCOUNTER → 2018-05-06 | Outpatient (CLI) | payer OTHER ==
[~2018-05-06] MED LIST changes: +FORTAZ IV; +MIRALAX17 GM PO; +PERCOCET PO; +VANCO1GM IV
== END ==
LOC: HYPER 02-24 07:33
DX: L89.323 Pressure ulcer of left buttock, stage 3 (principal); G82.50 Quadriplegia, unspecified; F17.200 Nicotine dependence, unspecified, uncomplicated; F41.9 Anxiety disorder, unspecified; F32.9 Major depressive disorder, single episode, unspecified

== ENCOUNTER → 2018-05-20 | Outpatient (CLI) | payer OTHER | LOC: HYPER 07:40 | DX: L89.323 Pressure ulcer of left buttock, stage 3 (principal); G82.50 Quadriplegia, unspecified; F17.200 Nicotine dependence, unspecified, uncomplicated; F41.9 Anxiety disorder, unspecified; F32.9 Major depressive disorder, single episode, unspecified ==

== ENCOUNTER → 2018-06-12 | Outpatient (CLI) | payer OTHER | LOC: HYPER 06-03 07:03 | DX: L89.323 Pressure ulcer of left buttock, stage 3 (principal); G82.50 Quadriplegia, unspecified; F17.200 Nicotine dependence, unspecified, uncomplicated; F41.9 Anxiety disorder, unspecified; F32.9 Major depressive disorder, single episode, unspecified ==

== ENCOUNTER → 2018-06-25 | Outpatient (CLI) | payer OTHER | LOC: HYPER 06:57 | DX: L89.323 Pressure ulcer of left buttock, stage 3 (principal); G82.50 Quadriplegia, unspecified; F41.9 Anxiety disorder, unspecified; F32.9 Major depressive disorder, single episode, unspecified; F17.200 Nicotine dependence, unspecified, uncomplicated ==

== ENCOUNTER → 2018-07-09 | Outpatient (CLI) | payer OTHER | LOC: HYPER 06:49 | DX: L89.323 Pressure ulcer of left buttock, stage 3 (principal); G82.50 Quadriplegia, unspecified; F17.200 Nicotine dependence, unspecified, uncomplicated; F41.9 Anxiety disorder, unspecified; F32.9 Major depressive disorder, single episode, unspecified ==

== ENCOUNTER → 2018-07-23 | Outpatient (CLI) | payer OTHER | LOC: HYPER 06:37 | DX: L89.323 Pressure ulcer of left buttock, stage 3 (principal); S14.109D Unspecified injury at unspecified level of cervical spinal cord, subsequent encounter; I10 Essential (primary) hypertension; G82.50 Quadriplegia, unspecified; F41.9 Anxiety disorder, unspecified; F32.9 Major depressive disorder, single episode, unspecified; F17.200 Nicotine dependence, unspecified, uncomplicated; X58.XXXD Exposure to other specified factors, subsequent encounter ==

== ENCOUNTER → 2018-08-06 | Outpatient (CLI) | payer OTHER | LOC: HYPER 07:03 | DX: L89.323 Pressure ulcer of left buttock, stage 3 (principal); G82.50 Quadriplegia, unspecified; F17.200 Nicotine dependence, unspecified, uncomplicated ==

== ENCOUNTER 2018-08-14 05:18 | Day surgery (SDC) | payer OTHER ==
[~2018-08-14] VITALS: Ht 172.7 cm; Wt 65.3 kg
[~2018-08-14 05:18] MED LIST changes: +MELATONIN 10 M1 EACH PO; +MIRALAX17 G1 PO; +OXYCODONE HCL10 MG PO; +OXYCONTIN10 M1 PO; +VITAMIN B-12500 MCG PO
[2018-08-14 08:29] VITALS: BP 116/71
[2018-08-14] MEDS ORDERED: NORCO 5-325 TA1 EACH PO (10:45)
[2018-08-14 11:53] VITALS: BP 116/71
--- NOTE | 2018-08-17 17:06 | PATH ---
[facility] [address] [place] [address] PATHOLOGY RPT PROCEDURE Name: LEIDA NAPIER Room #: DEP [facility] M.R.#: [id number] ������������������ Admission: 08/14/18 ������������������ Date of : 63 Discharge: 08/14/18 Report #: [id number] Path Case #: [id number] [facility] Accession Number: [id number] . 01 Material submitted: . buttock - LEFT ISCHIAL TUBEROSITY ULCER. Modifiers: left . 01 Clinical history: . Left buttocks wound . 02 Diagnosis: Left ischial tuberosity ulcer, debridement and irrigation: - Ulceration associated with fibrinoid degeneration, as well as marked acute inflammation extending into underlying subcutaneous tissue. - Adjacent squamous epithelium showing pseudoepitheliomatous changes and basal epithelial atypia. (IUV:branden; 08/17/2018) QMS/08/17/2018 . 02 Electronically signed: . Tiny Wolfe MD, Pathologist NPI- [id number] . 01 Gross description: . The specimen is received in formalin, labeled "Leida Napier, left ischial tuberosity tissue". Received is a segment of cbtq-zcs-nbsbph-cabrera fibroadipose tissue with attached pale cabrera skin measuring 4.5 x 4.1 x 2.3 cm in greatest mentions. There is a circular defect in the center of the specimen measuring 1.6 x 1.5 cm which goes through the depth of the entire specimen. The specimen is submitted representatively in cassette A1. (CAA; 08/14/2018) QAC/QAC . 02 Pathologist provided ICD-10: L98.418 . 02 CPT . 744834 Specimen Comment: A courtesy copy of this report has been sent to Specimen Comment: [phone], . Specimen Comment: Report sent to / DR SHAH Performed at: [address] [id number] MD Hesham Katz MD Phone: [phone] Performed at: 02 [place] [address] PATHOLOGY RPT PROCEDURE Name: LEIDA NAPIER Room #: DEP [facility] M.R.#: [id number] ������������������ Admission: 08/14/18 ������������������ Date of : 63 Discharge: 08/14/18 Report #: [id number] Path Case #: [id number] [address], [place], [place] [id number] MD Tiny Wolfe MD Phone: [phone]
== END 2018-08-14 12:30 | disposition home or self-care (01) ==
LOC: TBA 05:18 → OR 05:18 → TBA 05:19 → OR 07:26
DX: L89.324 Pressure ulcer of left buttock, stage 4 (principal); M86.9 Osteomyelitis, unspecified; F32.9 Major depressive disorder, single episode, unspecified; F17.210 Nicotine dependence, cigarettes, uncomplicated; Z79.891 Long term (current) use of opiate analgesic; Z98.890 Other specified postprocedural states; Z87.440 Personal history of urinary (tract) infections; Z86.19 Personal history of other infectious and parasitic diseases
CPT/HCPCS: 50010; 50101; 50366; 50386; 50403; 51412; 56524; 57119; 57120; 57138; 57192; 62110; 62900; 70005

== ENCOUNTER → 2018-08-20 | Outpatient (CLI) | payer OTHER ==
[~2018-08-20] MED LIST changes: +NORCO 5-325 TA1 EACH PO
== END ==
LOC: HYPER 06:44
DX: L89.323 Pressure ulcer of left buttock, stage 3 (principal); S14.109D Unspecified injury at unspecified level of cervical spinal cord, subsequent encounter; G82.50 Quadriplegia, unspecified; F41.9 Anxiety disorder, unspecified; F32.9 Major depressive disorder, single episode, unspecified; F17.200 Nicotine dependence, unspecified, uncomplicated; X58.XXXD Exposure to other specified factors, subsequent encounter

== ENCOUNTER → 2018-09-03 | Outpatient (CLI) | payer OTHER | LOC: HYPER 06:49 | DX: L89.323 Pressure ulcer of left buttock, stage 3 (principal); G82.50 Quadriplegia, unspecified; F17.200 Nicotine dependence, unspecified, uncomplicated; F41.9 Anxiety disorder, unspecified; F32.9 Major depressive disorder, single episode, unspecified ==

== ENCOUNTER → 2018-09-17 | Outpatient (CLI) | payer OTHER | LOC: HYPER 06:48 | DX: L89.324 Pressure ulcer of left buttock, stage 4 (principal); S14.109D Unspecified injury at unspecified level of cervical spinal cord, subsequent encounter; G82.50 Quadriplegia, unspecified; A41.9 Sepsis, unspecified organism; F41.9 Anxiety disorder, unspecified; F32.9 Major depressive disorder, single episode, unspecified; F17.200 Nicotine dependence, unspecified, uncomplicated; X58.XXXD Exposure to other specified factors, subsequent encounter ==

== ENCOUNTER → 2018-10-01 | Outpatient (CLI) | payer OTHER | LOC: HYPER 06:41 | DX: L89.324 Pressure ulcer of left buttock, stage 4 (principal); G82.50 Quadriplegia, unspecified; F17.200 Nicotine dependence, unspecified, uncomplicated; F41.9 Anxiety disorder, unspecified; F32.9 Major depressive disorder, single episode, unspecified ==

== ENCOUNTER → 2018-10-14 | Outpatient (CLI) | payer OTHER | LOC: HYPER 06:28 | DX: L89.324 Pressure ulcer of left buttock, stage 4 (principal); M41.9 Scoliosis, unspecified; I95.9 Hypotension, unspecified; G82.50 Quadriplegia, unspecified; R20.2 Paresthesia of skin; A41.9 Sepsis, unspecified organism; F17.200 Nicotine dependence, unspecified, uncomplicated ==

== ENCOUNTER → 2018-10-28 | Outpatient (CLI) | payer OTHER | LOC: HYPER 06:13 | DX: L89.324 Pressure ulcer of left buttock, stage 4 (principal); S14.109D Unspecified injury at unspecified level of cervical spinal cord, subsequent encounter; G82.50 Quadriplegia, unspecified; A41.9 Sepsis, unspecified organism; F41.9 Anxiety disorder, unspecified; F32.9 Major depressive disorder, single episode, unspecified; F17.200 Nicotine dependence, unspecified, uncomplicated; X58.XXXD Exposure to other specified factors, subsequent encounter ==

== ENCOUNTER → 2018-11-11 | Outpatient (CLI) | payer OTHER | LOC: HYPER 06:38 | DX: L89.324 Pressure ulcer of left buttock, stage 4 (principal); G82.50 Quadriplegia, unspecified; F17.200 Nicotine dependence, unspecified, uncomplicated; F41.9 Anxiety disorder, unspecified; F32.9 Major depressive disorder, single episode, unspecified ==

== ENCOUNTER → 2018-11-25 | Outpatient (CLI) | payer OTHER | LOC: HYPER 07:00 | DX: L89.324 Pressure ulcer of left buttock, stage 4 (principal); S14.109D Unspecified injury at unspecified level of cervical spinal cord, subsequent encounter; G82.50 Quadriplegia, unspecified; A41.9 Sepsis, unspecified organism; F41.9 Anxiety disorder, unspecified; F32.9 Major depressive disorder, single episode, unspecified; F17.200 Nicotine dependence, unspecified, uncomplicated; X58.XXXD Exposure to other specified factors, subsequent encounter ==

== ENCOUNTER → 2018-12-11 | Outpatient (CLI) | payer OTHER | LOC: HYPER 06:47 | DX: L89.324 Pressure ulcer of left buttock, stage 4 (principal); I10 Essential (primary) hypertension; G82.50 Quadriplegia, unspecified; A41.9 Sepsis, unspecified organism; F17.200 Nicotine dependence, unspecified, uncomplicated; F41.9 Anxiety disorder, unspecified; F32.9 Major depressive disorder, single episode, unspecified ==

== ENCOUNTER → 2018-12-17 | Outpatient (CLI) | payer OTHER | LOC: HYPER 06:53 | DX: L89.324 Pressure ulcer of left buttock, stage 4 (principal); G82.22 Paraplegia, incomplete; A41.9 Sepsis, unspecified organism; F17.200 Nicotine dependence, unspecified, uncomplicated; F41.9 Anxiety disorder, unspecified; F32.9 Major depressive disorder, single episode, unspecified ==

== ENCOUNTER → 2018-12-30 | Outpatient (CLI) | payer OTHER | LOC: HYPER 06:49 | DX: L89.324 Pressure ulcer of left buttock, stage 4 (principal); G82.22 Paraplegia, incomplete; F17.200 Nicotine dependence, unspecified, uncomplicated; F41.9 Anxiety disorder, unspecified; F32.9 Major depressive disorder, single episode, unspecified ==

== ENCOUNTER → 2019-01-19 | Outpatient (CLI) | payer OTHER | LOC: HYPER 15:30 | DX: L89.324 Pressure ulcer of left buttock, stage 4 (principal); G82.22 Paraplegia, incomplete; A41.9 Sepsis, unspecified organism; F41.9 Anxiety disorder, unspecified; F32.9 Major depressive disorder, single episode, unspecified; F17.200 Nicotine dependence, unspecified, uncomplicated ==

== ENCOUNTER → 2019-02-09 | Outpatient (CLI) | payer OTHER | LOC: HYPER 12:43 | DX: L89.324 Pressure ulcer of left buttock, stage 4 (principal); G82.22 Paraplegia, incomplete; F41.9 Anxiety disorder, unspecified; F32.9 Major depressive disorder, single episode, unspecified; F17.200 Nicotine dependence, unspecified, uncomplicated ==

== ENCOUNTER 2019-02-23 11:09 | Emergency (ER) | payer OTHER ==
[~2019-02-23] VITALS: Ht 167.6 cm; Wt 59.0 kg
[2019-02-23 11:55] LABS: ABSOLUTE NEUTROPHILS 5.6 thou/uL (1.4-8.2); EOSINOPHILS 3.8 % (0.0-3.0); HEMATOCRIT 41.4 % (37.0-47.0); HEMOGLOBIN 13.9 gm/dL (12.0-15.0); LYMPHOCYTES 27.6 % (24.0-44.0); MCH 29.6 pg (26.0-34.0); MCHC 33.6 g/dL (28.0-37.0); MCV 88.1 fL (80.0-100.0); MONOCYTES 4.1 % (1.0-8.0); PLATELET COUNT 327 thou/uL (150-400); POLYS 63.5 % (36.0-66.0); RDW 16.2 % (10.5-14.5); WBC 8.8 thou/uL (4.0-11.0)
[2019-02-23 11:57] LABS: CALCIUM 10.1 mg/dL (8.5-10.1); CREATININE 0.4 mg/dL (0.6-1.0); POTASSIUM 3.9 mmol/L (3.5-5.1)
[2019-02-23 12:01] LABS: URINE BILIRUBIN NEGATIVE (Negative); URINE BLOOD 3+ (Negative); URINE CLARITY SL CLOUDY; URINE COLOR YELLOW; URINE GLUCOSE-RANDOM* NEGATIVE (Negative); URINE KETONES NEGATIVE (Negative); URINE PROTEIN (DIPSTICK) 1+ (Negative); URINE SPECIFIC GRAVITY <= 1.005 (1.005-1.035); URINE UROBILINOGEN 0.2 E.U./dl (0.2-1.0)
[2019-02-23 12:03] LABS: URINE LEUKOCYTES-REFLEX 3+ (Negative); URINE NITRITE-REFLEX POSITIVE (Negative)
[2019-02-23 12:04] LABS: ALBUMIN 3.8 g/dL (3.4-5.0); TOTAL BILIRUBIN 0.3 mg/dL (<0.1-1.0); TOTAL PROTEIN 7.8 g/dL (6.4-8.2)
[2019-02-23 12:29] LABS: BACTERIA-REFLEX >30 Many /HPF (None Seen); CASTS None Seen /LPF (None Seen); CRYSTALS None Seen /LPF (None Seen); SQUAMOUS None Seen /LPF (0-3); URINE WBC-REFLEX 6-15 Few /HPF (0-5)
[2019-02-23] MEDS ORDERED: AUGMENTIN 875-1 EACH PO (14:26)
[2019-02-23 14:48] VITALS: BP 92/61
== END 2019-02-23 14:49 | disposition home or self-care (01) ==
LOC: ER 11:09
PROVIDERS: Emergency Medicine
DX: N39.0 Urinary tract infection, site not specified (principal); M41.9 Scoliosis, unspecified; F32.9 Major depressive disorder, single episode, unspecified; Z87.440 Personal history of urinary (tract) infections; Z86.14 Personal history of Methicillin resistant Staphylococcus aureus infection

== ENCOUNTER → 2019-02-23 | Outpatient (CLI) | payer OTHER | LOC: HYPER 07:36 | DX: L89.324 Pressure ulcer of left buttock, stage 4 (principal); G82.22 Paraplegia, incomplete; A41.9 Sepsis, unspecified organism; F41.9 Anxiety disorder, unspecified; F32.9 Major depressive disorder, single episode, unspecified; F17.200 Nicotine dependence, unspecified, uncomplicated ==

== ENCOUNTER 2019-04-23 22:20 | Inpatient (IN) | payer OTHER ==
[~2019-04-23] VITALS: Ht 172.7 cm; Wt 69.9 kg
--- NOTE | ~2019-04-23 | H ---
[facility] [place] [address] HISTORY AND PHYSICAL Name: KARY GUERRIER Room #: 443-P ADM IN M.R.#: [id number] Admission: 04/24/19 Attend Phys: Tatianna Azevedo Discharge: Date of : 63 Report #: [id number] THIS REPORT FOR: //name// CC: Harmeet Salinas DATE OF SERVICE: 04/24/2019 HISTORY OF PRESENT ILLNESS: This is a patient with ongoing wound, who has had longstanding left hip issues with open wound that had been almost closed and then began to deteriorate again and worrisome for more infection at which point she was admitted. PAST MEDICAL HISTORY: Noteworthy for incomplete quadriplegia with previous lumbar spinal surgery with neurogenic bladder, chronic catheterization along with previous neck injury. MEDICATIONS: List include baclofen, Lyrica, and oxycodone. FAMILY HISTORY: Noncontributory. ALLERGIES: She has no allergies. SOCIAL HISTORY: No smoking or alcohol of any significance. REVIEW OF SYSTEMS: Otherwise, negative. PHYSICAL EXAMINATION: GENERAL: Shows her to be in no distress. VITAL SIGNS: Stable. HEENT: Otherwise, negative. NECK: Supple, without thyromegaly or adenopathy. CHEST: Clear. CARDIOVASCULAR: Showed a regular rhythm without murmur. ABDOMEN: Soft and nontender. EXTREMITIES: Showed the paraplegia. Hays catheter in place. ASSESSMENT AND PLAN: 1. This is a patient with left gluteal wound with deterioration. 2. Incomplete quadriplegia. [facility] [address] [place] [address] HISTORY AND PHYSICAL Name: KARY GUERRIER Room #: 443-P ADM IN M.R.#: [id number] Admission: 04/24/19 Attend Phys: Tatianna Azevedo Discharge: Date of : 63 Report #: [id number] 3. Neurogenic bladder. She is admitted for IV antibiotics and this may result in a LTAC level stay. By: [id number] Harmeet Carrion MD /nt
--- NOTE | ~2019-04-23 | D ---
[facility] [place] [address] DISCHARGE SUMMARY Name: KARY GUERRIER Room #: 443-P ADM IN M.R.#: [id number] Admission: 04/24/19 Attend Phys: Tatianna Azevedo Discharge: Date of : 63 Report #: [id number] THIS REPORT FOR: //name// CC: Harmeet Salinas FINAL DIAGNOSES: 1. Left ischial osteomyelitis. 2. Left ischial wound. 3. Paraplegia. 4. Neurogenic bladder. HOSPITAL COURSE: The patient was admitted with fever. There was concern of infection of the left ischial wound. She was seen by Infectious Disease and Wound Care. Ultimately, the plan will be to continue IV Merrem as an outpatient at home. She had no other medical complications. PHYSICAL EXAMINATION: GENERAL: On the day of discharge, her temperature was 37.4, pulse was 72, respiration 17, blood pressure 87/55, and O2 sat 97% on the room air. LUNGS: Clear. HEART: Regular. ABDOMEN: Soft. Normoactive bowel sounds. EXTREMITIES: Showed no edema and her wound was dressed. DISPOSITION: She is discharged to home with home health. Diet and activity as tolerated. Followup with Dr. Carrion in [address] Salinas or Dr. Mejia in 2 weeks. MEDICATIONS: Vitamin C, zinc, baclofen 10 mg q.i.d., melatonin, B12, MiraLax, oxycodone 10 mg q. 4 hours p.r.n., and Lyrica 50 mg twice a day and she will have IV Merrem 500 mg every 6 hours. By: [id number] John Blackwell MD /nt
[2019-04-23 22:27] VITALS: BP 94/49
[2019-04-23] MEDS ORDERED: LYRICA 50 MG50 MG PO (22:33)
[2019-04-23] MEDS ORDERED: AMOXICILLI400 MG/5 M PO (22:34)
[2019-04-24 00:42] LABS: CALCIUM 9.8 mg/dL (8.5-10.1); CREATININE 0.5 mg/dL (0.6-1.0); POTASSIUM 3.9 mmol/L (3.5-5.1)
[2019-04-24 00:51] LABS: ABSOLUTE NEUTROPHILS 5.2 thou/uL (1.4-8.2); BASOPHILS 0.9 % (0.0-2.0); EOSINOPHILS 2.8 % (0.0-3.0); HEMATOCRIT 37.9 % (37.0-47.0); HEMOGLOBIN 12.5 gm/dL (12.0-15.0); LYMPHOCYTES 38.8 % (24.0-44.0); MCH 30.2 pg (26.0-34.0); MCHC 33.1 g/dL (28.0-37.0); MCV 91.1 fL (80.0-100.0); MONOCYTES 6.7 % (1.0-8.0); PLATELET COUNT 307 thou/uL (150-400); POLYS 50.8 % (36.0-66.0); RBC 4.16 mil/uL (4.20-5.00); RDW 13.9 % (10.5-14.5); WBC 10.2 thou/uL (4.0-11.0)
[2019-04-24 02:31] VITALS: BP 106/55
[2019-04-24 02:32] VITALS: BP 103/54
[2019-04-24 03:30] VITALS: BP 96/59
--- NOTE | 2019-04-24 05:33 | NUR ---
PT ADMITTED INTO ROOM 443 WITH L BUTTOCK WOUND.PICTURES TAKEN. PT IS ALERT AND ORIENTED. USES A MOTORISED SCOOTER. TRANSFERED SELF WELL TO THE BED. AFEBRILE. REQUIRES SBA. PT HAS A MICHELLE TO D/D. URINE IS LIGHT YELLOW.C/O CHRONIC PAIN TO THE WOUND SIGHT AND JUST NERVES OVERALL-PAIN MEDS ORDERED.CALL LIGHT WITHIN REACH.
[2019-04-24 07:35] VITALS: BP 97/60
--- NOTE | 2019-04-24 13:15 | NUR ---
PT CARE ASSUMED AT 0700. A&Ox4. PT HAS A CHRONIC MICHELLE CATETHER. WOUND DOCTOR CAME AND SAW PT TO SEE WOUND. PT USES THE BED SIDE COMMODE FOR BM. IV IS PATENT WITH NO REDNESS OR SWELLING. IV ANTIBIOTICS INFUSING. PAIN WAS UNCONTROLLED THIS AM. CALLED THE MD AND RECEIVED A ONE TIME ORDER OF PAIN MEDICATION. BY GIVING THIS ADDITIONALLY THE PAIN IS BETTER UNDER CONTROLL. PT IS RESTING. PT SITS AT THE EDGE OF THE BED TO EAT. PT OWN MOTORIZED WHEELCHAIR IS IN THE ROOM. PT. LEFT HAND IS CONTRACTED. BED IS IN LOW POSITION WITH BED ALARM IN PLACE. CALL LIGHT IN REACH.
[2019-04-24 17:05] VITALS: BP 91/56
[2019-04-24 19:10] VITALS: BP 81/39
--- NOTE | 2019-04-25 02:07 | NUR ---
ASSUMED PT CARE AT 1900. PT REPORTS PAIN OF 10/10 WITH SOME RELIEF FROM PAIN MEDS. ANTIBIOTICS INFUSING ORDERED. BP LOW WITH DIASTOLIC OF 39, CALLED DOC AND GIVEN BOLUS PER ORDER. BP STILL LOW BUT CLOSER TO PTS NORM. REQUESTED COMMODE BUT NO BM TONIGHT. SLEEPING ON AND OFF DURING SHIFT.
[2019-04-25 08:00] VITALS: BP 98/59
[2019-04-25 16:56] VITALS: BP 85/44
--- NOTE | 2019-04-25 18:18 | NUR ---
PT A&OX4. HAS OWN ELECTRICAL W/C HERE IN ROOM. IV INFILTRATED TODAY NOW PATENT AND INFUSING IVAB IN R ARM. TOLERATING PO PAIN MED FOR L BUTTOCK WOUND AND NERVE PAIN. CALL LIGHT W/I REACH BED ALARM IS ON.
[2019-04-25 19:06] VITALS: BP 96/58
--- NOTE | 2019-04-26 02:22 | NUR ---
ASSESSED AT START OF SHIFT WITH C/O OF PAIN MEDS GIVEN SEE EMAR. SACRAL DRESSING CHANGED. IV INTACT AND ABX GIVEN. PT CONTRACTED ON HER LFT ARM. UP WITH ASSIST TO BSC. OXYCODONE AND SCHEDULED BACLOFEN GIVEN FOR GENERALIZIED PAIN. FOLLEY INTACT AND WILL CONT WITH POC TILL EOS.
[2019-04-26 04:02] VITALS: BP 90/58
[2019-04-26 08:00] VITALS: BP 108/67
--- NOTE | 2019-04-26 10:00 | NUR ---
ASSUME CARE OF PATIENT AT 0700. PATIENT ALERT AND ORIENTATED X 4. COMPLAINS OF PAIN IN THE BUTTOCK AREA /. PRN PAIN MEDICATION GIVEN. FOLLEY CATH IN PLACE. DRESSING ON LEFT BUTTOCK CLEAN AND INTACT. CALL LIGHT WITHIN REACH. FALL PRECAUTIONS IN PLACE. WILL CONTINUE TO MONITOR.
--- NOTE | 2019-04-26 16:28 | NUR ---
Pt down for MRI to r/o osteo. Chart reviewed and case discussed with the care team. Pt was admitted from home and is known to cm from previous admissions in 2018. She is an incomplete quad and has all needed dme in place at home. Her son lives with her. She is [facility] to help with her wound care. She has been with them since January 2018. She has had previous stays at [facility] and [facility] for wound care and IV atb. She see Dr. Salinas in our wound clinic. She is on IV atb per ID. [facility] updated and available for readmission at [facility]. Facesheet faxed to [facility] to check her should a referral bed indicated.
[2019-04-26 19:25] VITALS: BP 95/57
--- NOTE | 2019-04-27 01:43 | NUR ---
ASSUMED PT CARE AT 1900. BUTTOCKS DRESSING DRY AND INTACT. PT COMPLAINS OF SEVERE PAIN, PAIN MEDS NOT PROVIDED MUCH RELIEF. WANTS TO TALK WITH DR IN AM ABOUT TRYING SOMETHING NEW. PM MEDS AND ANTIBIOTICS GIVEN ORDERED. RESTING IN BED NOW, WILL CONTINUE TO MONITOR.
[2019-04-27 03:40] VITALS: BP 80/45
--- NOTE | 2019-04-27 05:32 | NUR ---
faxed [facility] sheet to [facility].
[2019-04-27 07:30] VITALS: BP 87/55
--- NOTE | 2019-04-27 12:40 | NUR ---
FAXED REFERRAL TO [facility] SPOKE WITH JIN IN ADM HE RECEIVED REFERRAL AND WILL REVIEW. DP TO FOLLOW.
--- NOTE | 2019-04-27 14:03 | NUR ---
WOUND CONSULT; ROUNDING WITH DR ERIC AND GAGE LYON. THE WOUND IS STABLE AT THIS TIME. ITS ONLY MILLIMETERS OPEN WTH A DEPTH OF 2 CM. NO S/S OF INFECTION NOTED. CONTINUE CURRENT W/C ORDERS
[2019-04-27 15:31] VITALS: BP 87/55
[2019-04-27 15:34] VITALS: BP 87/55
--- NOTE | 2019-04-27 15:35 | NUR ---
PT TO DC HOME WITH HH FAXED REFERRAL TO [facility] SPOKE WITH GAGE IN INTAKE THEY CAN ACCEPT AT DC.
--- NOTE | 2019-04-27 15:38 | NUR ---
Following for d/c planning needs. Pt does not want to go to [facility]. She has been at [facility] in the past. Pt wants to return home. Pt lives with son and son is agreeable to learn how to administer the IVAB. Pt had been [facility] with [facility]. Contacted [facility]. Pt will need IVAB. Contacted [facility]. Dr Blackwell said pt will probably be ready for d/c on Friday. Pt is having PICC line placed today. traffic and transport planner to fax referral. [facility] [phone] [facility] [phone]
--- NOTE | 2019-04-27 16:15 | NUR ---
SINGLE LUMEN PICC ORDERED FOR [facility] ANTIBIOTIC THERAPY.HISTORY, LABS, ORDERS, AND CONSENT VERIFIED. RISK, BENEFITS, AND ALTERNATIVE TREATMENT DISCUSSED WITH THE PATIENT RELATED TO PICC PROCEDURE. TEACHING GIVEN RELATED TO POSSIBLE COMPLICATIONS SUCH BLEEDING, INFECTION, CLOT, OR VESSEL PERFORATION. INSTRUCTION GIVEN RELATED TO CLABSI PREVENTION WITH LITERATURE PROVIDED. TIME OUT COMPLETED AT THE BEDSIDE WITH PATIENT'S NURSE. SINGLE LUMEN PICC PLACED WITHOUT DIFFICULTY TO RUE BASILIC VEIN. ONE STICK AND NO COMPLICATIONS. PATIENT TOLERATED VERY WELL.CHEST XRAY OBTAINED FOR PLACEMENT. PICC TRIMMED TO 36CM WITH 0CM EXTERNAL AND 36 INTERNAL. PICC RELEASED FOR IMMEDIATE USE PER PROTOCOL.
--- NOTE | 2019-04-27 19:35 | NUR ---
Assumed care of pt at 0700. Pt a&ox4. Prn pain meds administered per pt request. Hays catheter in place. PICC line placed by IV team. Possible D/c with home health tomorrow 04/28. Call light within reach. Fall precautions in place. Report given to gilberto BUCKLEY.
[2019-04-27 19:44] VITALS: BP 100/64
--- NOTE | 2019-04-28 01:04 | NUR ---
ASSUMED PT CARE AT 1900. PT REPORTS PAIN OF 10, LITTLE RELIEF WITH PAIN MEDS. RAN A FEVER TONIGHT, CALLED FOR TYLENOL, GIVEN ORDERED, PROVIDED COLD COMPRESS FOR FOREHEAD. ANTIBIOTICS HUNG ORDERED. NEW PICC FLUSHES WELL W/ BLOOD RETURN. WOUND DRESSING DRY AND INTACT. MICHELLE PATENT W/ GOOD OUTPUT. IN AND OUT OF SLEEP WHOLE SHIFT, ANXIOUS TO GO HOME BUT WORRIED ABOUT CURRENT DIAGNOSIS. NO BM AGAIN TONIGHT. WILL CONTINUE TO MONITOR.
[2019-04-28 04:29] VITALS: BP 90/56
[2019-04-28 08:30] VITALS: BP 82/50
[2019-04-28 10:14] VITALS: BP 87/55
--- NOTE | 2019-04-28 13:54 | NUR ---
Following for d/c planning needs. Pt to be d/c home today with IVAB. Dos Santos at bedside to do instruct. She will contact [facility] to arrange visit time. No other needs identified. town planner faxed orders to [facility]. [facility] liaison faxed orders to infusion.
--- NOTE | 2019-04-28 13:56 | NUR ---
PT DISCHARGING TODAY TO HOME WITH [facility]. FAXED DC ORDERS/SUMMARY TO [facility] WITH GAGE IN INTAKE SHE RECEIVED DC ORDERS AND ARRANGED VISITS WITH [facility] AND WILL CALL PT TIME OF VISITS. NOEMI FROM [facility] HERE TO SEE PT AT THE BEDSIDE AND RECEIVED DC ORDERS/SUMMARY AND NOTIFIED PT TIME OF VISIT THIS EVENING.
--- NOTE | 2019-04-28 14:42 | NUR ---
WOUND CARE F/U; ROUNDING WITH DR ERIC. THE WOUND IS UNCHANGED SINCE YESTERDAY. THE WOUND IS STABLE. THE PATIENT IS DISCHARGING TODAY. D/C PHOTOS TAKEN ORDERES ENTERED DISCUSSED WITH STAFF
--- NOTE | 2019-05-01 11:55 | HC ---
[facility] [place] [address] CONSULTATION Name: FAREEDKARY ALFARO Tatianna Room #: 443-P [facility] IN M.R.#: [id number] Admission: 04/24/19 Attend Phys: Tatianna Azevedo Discharge: 04/28/19 Date of : 63 Report #: [id number] THIS REPORT FOR: //name// CC: Harmeet Salinas DATE OF SERVICE: 04/24/2019 WOUND CARE CONSULTATION NOTE REASON FOR CONSULTATION: Chronic coccygeal stage 4 pressure ulcer with increased drainage and wound culture showing multiple organisms with drug resistance. HISTORY OF PRESENT ILLNESS: The patient is a 53-year-old patient of Dr. Salinas, had been seen in the [facility]. She has a partial quadriplegia C5 level and has had a sacral wound since 2018. This was a large wound requiring debridement and wound VAC was utilized. Wound had almost completely healed. She has been seeing Dr. Salinas in the clinic. Wound had increased drainage with a clinical change and wound cultures were taken showing multiple organisms including Pseudomonas aeruginosa, Enterococcus faecalis and E. coli, which was multiple drug resistant organism sensitive only to amikacin, ertapenem, imipenem, meropenem and piperacillin-tazobactam as well as tobramycin, but vancomycin-resistant. She is admitted for IV antibiotics, Infectious Disease consultation. Dr. Salinas does not feel that a surgical debridement will be necessary at this time with an MRI should be ordered. She is afebrile with admission, white blood count of 10.2. PAST MEDICAL HISTORY: 1. Partial quadriplegia C5 level after spinal surgery. 2. History of scoliosis. 3. Neurogenic bladder. 4. History of frequent urinary tract infections. 5. History of osteomyelitis of the sacrum. 6. History of methicillin-resistant Staphylococcus aureus. HOME MEDICATIONS: Augmentin, hydrocodone, Lyrica, vitamin C, zinc, melatonin, vitamin B, MiraLax, oxycodone. ALLERGIES: No known drug allergies. SOCIAL HISTORY: The patient is an active smoker. PHYSICAL EXAMINATION: GENERAL: Shows chronically ill-appearing, alert, middle-aged woman with partial quadriplegia. She is able to move her upper extremities, can move her lower [facility] [address] [place] [address] CONSULTATION Name: KARY GUERRIER Room #: 443-P [facility] IN ..#: [id number] Admission: 04/24/19 Attend Phys: Tatianna Azevedo Discharge: 04/28/19 Date of : 63 Report #: [id number] extremities with some weakness. HEENT: Mucous membranes are moist. There is smell of tobacco. NECK: Supple. ABDOMEN: Soft. EXTREMITIES: Lower extremities show some weakness. Examination of the sacral area shows a large complex stellate healed scar with a small central 3 x 4 mm opening with mild drainage. Wooden handle cotton tipped applicator was passed into the wound. There is approximately a 1.5-2 cm deep sinus present. No packing is done. Foam borders were placed over this. No surrounding cellulitis. IMPRESSION: 1. Immobility with incomplete C5 paraplegia, lower extremity weakness and immobility. 2. Neurogenic bladder with frequent urinary tract infections. 3. Chronic stage 4 sacral ulcer. 4. Wound cultures growing Pseudomonas aeruginosa, Enterococcus faecalis and resistant E. coli with multiple drug resistant organisms. PLAN: Will be to defer any further surgical debridement. Obtain MRI to rule out osteomyelitis. Consult Infectious Disease for proper broad-spectrum antibiotic coverage to include Escherichia coli. Wound care team will follow, cover with foam border. <ELECTRONICALLY SIGNED> By: Korey Moncada MD 05/01/19 [id number] Korey Moncada MD /nt
== END 2019-04-28 17:41 | disposition home health service (06) | DRG 539 ==
LOC: ER 22:20 → 4S 04-24 00:40 → EROBS 04-24 00:40 → 4S 04-24 02:55
PROVIDERS: Emergency Medicine; ADMIT Internal Medicine
PROC: 02HV33Z Insertion of Infusion Device into Superior Vena Cava, Percutaneous Approach (ICD-10-PCS; principal; 2019-04-27)
DX: M86.8X9 Other osteomyelitis, unspecified sites (principal); L89.154 Pressure ulcer of sacral region, stage 4; G82.22 Paraplegia, incomplete; N39.0 Urinary tract infection, site not specified; G82.20 Paraplegia, unspecified; F32.9 Major depressive disorder, single episode, unspecified; N31.9 Neuromuscular dysfunction of bladder, unspecified; Z86.14 Personal history of Methicillin resistant Staphylococcus aureus infection
CPT/HCPCS: 10195; 27000

== ENCOUNTER → 2019-05-06 | Outpatient (CLI) | payer OTHER ==
[~2019-05-06] MED LIST changes: +AMOXICILLI400 MG/5 M PO; +LYRICA 50 MG50 MG PO
== END ==
LOC: HYPER 08:58
DX: L89.324 Pressure ulcer of left buttock, stage 4 (principal); S14.109D Unspecified injury at unspecified level of cervical spinal cord, subsequent encounter; G82.22 Paraplegia, incomplete; M41.9 Scoliosis, unspecified; R41.3 Other amnesia; F41.9 Anxiety disorder, unspecified; F32.9 Major depressive disorder, single episode, unspecified; F17.200 Nicotine dependence, unspecified, uncomplicated; Z86.14 Personal history of Methicillin resistant Staphylococcus aureus infection; X58.XXXD Exposure to other specified factors, subsequent encounter

== ENCOUNTER → 2019-05-20 | Outpatient (CLI) | payer OTHER | LOC: HYPER 12:23 | DX: L89.324 Pressure ulcer of left buttock, stage 4 (principal); S14.109D Unspecified injury at unspecified level of cervical spinal cord, subsequent encounter; G82.22 Paraplegia, incomplete; M41.9 Scoliosis, unspecified; F41.9 Anxiety disorder, unspecified; F32.9 Major depressive disorder, single episode, unspecified; Z86.14 Personal history of Methicillin resistant Staphylococcus aureus infection; F17.290 Nicotine dependence, other tobacco product, uncomplicated; X58.XXXD Exposure to other specified factors, subsequent encounter ==

== ENCOUNTER → 2019-06-03 | Outpatient (CLI) | payer OTHER | LOC: HYPER 13:49 | DX: L89.324 Pressure ulcer of left buttock, stage 4 (principal); S14.109D Unspecified injury at unspecified level of cervical spinal cord, subsequent encounter; G82.22 Paraplegia, incomplete; M41.9 Scoliosis, unspecified; F41.9 Anxiety disorder, unspecified; F32.9 Major depressive disorder, single episode, unspecified; F17.200 Nicotine dependence, unspecified, uncomplicated; Z99.3 Dependence on wheelchair; Z86.14 Personal history of Methicillin resistant Staphylococcus aureus infection; X58.XXXD Exposure to other specified factors, subsequent encounter ==

== ENCOUNTER → 2019-06-17 | Outpatient (CLI) | payer OTHER | LOC: HYPER 11:34 | DX: L89.324 Pressure ulcer of left buttock, stage 4 (principal); S14.109D Unspecified injury at unspecified level of cervical spinal cord, subsequent encounter; G82.22 Paraplegia, incomplete; M41.9 Scoliosis, unspecified; F32.9 Major depressive disorder, single episode, unspecified; Z86.14 Personal history of Methicillin resistant Staphylococcus aureus infection; F41.9 Anxiety disorder, unspecified; F17.200 Nicotine dependence, unspecified, uncomplicated; X58.XXXD Exposure to other specified factors, subsequent encounter ==

== ENCOUNTER → 2019-07-01 | Outpatient (CLI) | payer OTHER | LOC: HYPER 13:48 | DX: L89.324 Pressure ulcer of left buttock, stage 4 (principal); S14.109D Unspecified injury at unspecified level of cervical spinal cord, subsequent encounter; G82.22 Paraplegia, incomplete; I95.9 Hypotension, unspecified; F17.200 Nicotine dependence, unspecified, uncomplicated; F41.9 Anxiety disorder, unspecified; F32.9 Major depressive disorder, single episode, unspecified; X58.XXXD Exposure to other specified factors, subsequent encounter ==